=== PATIENT | male | born 1995 | race Two or more races ===

== ENCOUNTER 2019-05-23 20:58 | Emergency (ER) | payer BC, OTHER ==
[2019-05-23 21:07] VITALS: BMI 29.9
--- NOTE | 2019-05-23 21:51 | PDOC ---
History of Present Illness - General Chief Complaint: Injury Stated Complaint: R/HAND NUMBNESS Time Seen by Provider: 05/23/19 21:18 History Source: Patient - History of Present Illness Initial Comments: 05/23/19 21:51 24y/o M with no significant pmhx presents to the ED with right wrist drop. Pt. was asleep and woke up at approx. 8pm, noticing he had been sleeping on his arm. The hand has remained unchanged since then. He denies being in any pain, or feeling of weakness in his left arm or hand. He is able to move his fingers in this right hand. He reports some numbness which is confined to the right hand and does not extend to his forearm He denies any trauma to the wrist, headache, previous episodes of wrist drop or a history of neurological problems. 05/23/19 22:44 Past History - Past Medical History Allergies/Adverse Reactions: Allergies Allergy/AdvReac Type Severity Reaction Status Date / Time No Known Allergies Allergy Verified 05/23/19 21:07 Home Medications: Ambulatory Orders NK [No Known Home Medication] 05/23/19 Anemia: No Asthma: No Cancer: No Cardiac Disorders: No CVA: No COPD: No CHF: No Dementia: No Diabetes: No GI Disorders: No Disorders: No HTN: No Hypercholesterolemia: No Liver Disease: No Seizures: No Thyroid Disease: No - Surgical History Abdominal Surgery: No Appendectomy: No Cardiac Surgery: No Cholecystectomy: No Lung Surgery: No Neurologic Surgery: No Orthopedic Surgery: No - Suicide/Smoking/Psychosocial Hx Smoking History: Never smoked Have you smoked in the past 12 months: No Hx Alcohol Use: No Drug/Substance Use Hx: No Substance Use Type: None Hx Substance Use Treatment: No Review of Systems - Review of Systems Constitutional: No: Chills, Fever HEENTM: No: Eye Pain, Blurred Vision, Hearing Loss Respiratory: No: Cough, Shortness of Breath Cardiac (ROS): No: Chest Pain, Lightheadedness ABD/GI: No: Nausea, Vomiting, Abdominal cramping : No: Burning, Pain Musculoskeletal: No: Back Pain, Muscle Pain Neurological: No: Headache, Unsteady Gait Endocrine: No: Flushing All Other Systems: Reviewed and Negative *Physical Exam - Vital Signs Last Vital Signs Temp Pulse Resp BP Pulse Ox 98.8 F 102 H 18 148/88 100 05/23/19 21:03 05/23/19 21:03 05/23/19 21:03 05/23/19 21:03 05/23/19 21:03 - Physical Exam General Appearance: Yes: Nourished, Appropriately Dressed. No: Apparent Distress HEENT: positive: EOMI, Normal Voice, Hearing Grossly Normal. negative: Pale Conjunctivae, Photophobia, Scleral Icterus (R), Scleral Icterus (L), Muffled/ Hoarse voice Neck: positive: Supple Respiratory/Chest: positive: Lungs Clear, Normal Breath Sounds. negative: Respiratory Distress, Decreased Breath Sounds, Wheezing Cardiovascular: positive: Regular Rhythm, Regular Rate, S1, S2. negative: JVD Extremity: positive: Normal Capillary Refill, Other (right wrist is hyperflexed. Pt unable to exdend right hand, Is able to move his fingers. 2+ radial pulse in the right wrist.2s capillary refill). 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 this is likely peripheral nerve palsy Neurologist on-call will be consulted for further management. 05/23/19 22:[address] Elliott (neurologist). He recommends pt. discharge and follow up with him tomorrow 05/23/19 22:43 Pt. HR 102 on arrival, 84 at discharge. *DC/Admit/Observation/Transfer Diagnosis at time of Disposition: Peripheral nerve palsy - Discharge Dispostion Disposition: HOME Condition at time of disposition: Stable Decision to Admit order: No - Referrals Referrals: Suzan Elliott MD [Staff Physician] - - Patient Instructions Printed Discharge Instructions: Peripheral Neuropathy Additional Instructions: Return to the ER if hand becomes cold/blue,you can't feel a radial pulse or experience a worsening of symptoms. Follow up on Friday with Dr. Elliott - Post Discharge Activity
--- NOTE | 2019-05-23 22:23 | PDOC ---
Documentation entered by Stella Cameron SCRIBE, acting as scribe for Sunny Soni MD. Sunny Soni MD: This documentation has been prepared by the Rakesh tatum Nirvannie, SCRIBE, under my direction and personally reviewed by me in its entirety. I confirm that the documentation accurately reflects all work, treatment, procedures, and medical decision making performed by me. Attending Attestation - Resident Resident Name: CiaranagAraceli - ED Attending Attestation I have performed the following: I have examined & evaluated the patient, The case was reviewed & discussed with the resident, I agree w/resident's findings & plan, Exceptions are as noted - HPI HPI: 05/23/19 21:43 The patient is a 24 year old male, with no significant past medical history, who presents to the emergency department with difficulty extending his R wrist. As per patient, he fell asleep on his right arm and for the past 1.5 hours he has not been able to fully range his R wrist. He notes no difficulty flexing his wrist. Has full ROM of his fingers and elbow. He denies any pain to the wrist. He denies any recent fevers, chills, headache or dizziness. He denies any recent nausea, vomit, diarrhea or constipation. He denies any recent chest pain or shortness of breath. He denies any recent dysuria, frequency, urgency or hematuria. Allergies: NKDA - Physicial Exam PE: 05/23/19 21:43 GENERAL: Awake, alert, and fully oriented, in no acute distress. HEAD: No signs of trauma EYES: PERRLA, EOMI, sclera anicteric, conjunctiva clear ENT: Auricles normal inspection, hearing grossly normal, nares patent, oropharynx clear without exudates. Moist mucosa NECK: Nontender, no stepoffs, Normal ROM, supple, no lymphadenopathy, JVD, or masses LUNGS: Breath sounds equal, clear to auscultation bilaterally. No wheezes, and no crackles HEART: Regular rate and rhythm, normal S1 and S2, no murmurs, rubs or gallops ABDOMEN: Soft, nontender, normoactive bowel sounds. No guarding, no rebound. No masses EXTREMITIES: Normal range of motion, no edema. No clubbing or cyanosis. No cords, erythema, or tenderness NEUROLOGICAL: Cranial nerves II through XII intact. + isolated weakness in R wrist extension, 5/5 strength and sensation in all other joints and extremities , Normal speech, normal gait, normal cerebellar function SKIN: Warm, Dry, normal turgor, no rashes or lesions noted. - Medical Decision Making 05/23/19 22:20 24 M with weakness on R wrist flexion. Suspect radial nerve palsy 2/2 sleeping on his arm. No other neuro deficits found on exam. Pt with good pulses and circulation. - Discussed with Dr. Elliott, who will f/u with pt in his office tomorrow. No indication for intervention at this time. Pt placed in wrist splint for comfort Repeat HR 80 Pt is well appearing, with normal vitals. Clinically stable for DC at this time. I discussed the physical exam findings, ancillary test results and final diagnoses with the patient. I answered all of the patient's questions. The patient was satisfied with the care received and felt comfortable with the discharge plan and treatment plan. The patient agrees to follow up with the primary care physician within 24-72 hours.
[2019-05-23 22:53] VITALS: BP 134/64; PULSE 88; TEMP 98.6
== END 2019-05-23 22:45 | disposition home or self-care (01) ==
LOC: JER 20:58
PROC: 2W3CX1Z Immobilization of Right Lower Arm using Splint (ICD-10-PCS; principal; 2019-05-23)
DX: G58.8 Other specified mononeuropathies (principal)
CPT/HCPCS: 99282-25